=== PATIENT | male | born 1945 | race Caucasian/White ===

== ENCOUNTER 2023-09-14 09:08 | Outpatient (CLI) | payer MEDICARE, OTHER | END 2023-09-14 09:09 | disposition short-term general hospital (02) | LOC: EMS 09:08 | DX: R41.82 Altered mental status, unspecified (principal); W18.30XA Fall on same level, unspecified, initial encounter; Y92.019 Unspecified place in single-family (private) house as the place of occurrence of the external cause; Z79.01 Long term (current) use of anticoagulants | CPT/HCPCS: A0425; A0429 ==